=== PATIENT | male | born 1990 | race American Indian/Alaskan Native ===

== ENCOUNTER 2021-09-26 04:25 | Emergency (ER) | payer SELFPAY ==
[2021-09-26 04:32] VITALS: BP 151/125
[2021-09-26] MEDS ORDERED: HYDROcodone/ACETAMINOPHEN 10-325MG TAB PO ONE (04:36)
[2021-09-26] MEDS ORDERED: AMOXICILLIN 500 MG CAP PO ONE (08:25)
[2021-09-26] MEDS ORDERED: IBUPROFEN 800 MG TAB PO ONE (08:25)
--- NOTE | 2021-09-26 08:25 | Emergency Department Report ---
ED ENT HPI - General Chief complaint: Dental/Oral Stated complaint: DENTAL PAIN/ FACIAL PAIN Time Seen by Provider: 09/26/21 08:13 Source: patient Mode of arrival: Ambulatory Limitations: No Limitations - History of Present Illness Initial comments: Patient is a 30-year-old male that comes to the emergency room complaining of upper and lower dental pain. ABCs intact. No trismus. Controlling secretions. No abscess. No lymphadenopathy. Patient denies fever or chills. He has not seen a dentist. He has a history of dental caries MD complaint: tooth pain -: Gradual, days(s) Severity scale (0 -10): 4 Quality: aching Consistency: constant Improves with: none Worsens with: none Context- Dental: history of dental caries Associated Symptoms: toothache. denies: fever, cough, gum swelling, pain with swallowing, sore throat, tinnitus, hearing loss, discharge from ear, rhinorrhea - Related Data Previous Rx's Medication Instructions Recorded Last Taken Type Amoxicillin [Trimox CAP] 500 mg PO BID #20 capsule 09/26/21 Unknown Rx Ibuprofen [Motrin] 800 mg PO Q8HR PRN #30 tablet 09/26/21 Unknown Rx Allergies Allergy/AdvReac Type Severity Reaction Status Date / Time No Known Allergies Allergy Verified 09/26/21 04:30 ED Dental HPI - General Chief complaint: Dental/Oral Stated complaint: DENTAL PAIN/ FACIAL PAIN Time Seen by Provider: 09/26/21 08:13 Source: patient Mode of arrival: Ambulatory Limitations: No Limitations - Related Data Previous Rx's Medication Instructions Recorded Last Taken Type Amoxicillin [Trimox CAP] 500 mg PO BID #20 capsule 09/26/21 Unknown Rx Ibuprofen [Motrin] 800 mg PO Q8HR PRN #30 tablet 09/26/21 Unknown Rx Allergies Allergy/AdvReac Type Severity Reaction Status Date / Time No Known Allergies Allergy Verified 09/26/21 04:30 ED Review of Systems ROS: Stated complaint: DENTAL PAIN/ FACIAL PAIN Other details as noted in HPI Comment: All other systems reviewed and negative ED Past Medical Hx - Past Medical History Previous Medical History?: No - Surgical History Past Surgical History?: No - Family History Family history: no significant - Social History Smoking Status: Current Every Day Smoker Substance Use Type: Alcohol - Medications Home Medications: Home Medications Medication Instructions Recorded Confirmed Last Taken Type Amoxicillin [Trimox CAP] 500 mg PO BID #20 capsule 09/26/21 Unknown Rx Ibuprofen [Motrin] 800 mg PO Q8HR PRN #30 tablet 09/26/21 Unknown Rx ED Physical Exam - General Limitations: No Limitations General appearance: alert, in no apparent distress - Head Head exam: Present: atraumatic, normocephalic - Eye Eye exam: Present: normal appearance - ENT ENT exam: Present: mucous membranes moist - Expanded ENT Exam Expanded Mouth exam: Present: normal external inspection. Absent: drooling, trismus, muffled voice Teeth exam: Present: dental caries 1 - Other (caries) - Neck Neck exam: Present: normal inspection - Respiratory Respiratory exam: Present: normal lung sounds bilaterally. Absent: respiratory distress - Cardiovascular Cardiovascular Exam: Present: regular rate, normal rhythm. Absent: systolic murmur, diastolic murmur, rubs, gallop - GI/Abdominal GI/Abdominal exam: Present: soft, normal bowel sounds - Rectal Rectal exam: Present: deferred - Extremities Exam Extremities exam: Present: normal inspection - Back Exam Back exam: Present: normal inspection - Neurological Exam Neurological exam: Present: alert, oriented X3 - Psychiatric Psychiatric exam: Present: normal affect, normal mood - Skin Skin exam: Present: warm, dry, intact, normal color. Absent: rash ED Course Vital Signs 09/26/21 04:31 Temperature 98.3 F Pulse Rate 97 H Respiratory 18 Rate Blood Pressure 151/125 O2 Sat by Pulse 95 Oximetry ED Medical Decision Making - Medical Decision Making Vital Signs 09/26/21 04:31 Temperature 98.3 F Pulse Rate 97 H Respiratory 18 Rate Blood Pressure 151/125 O2 Sat by Pulse 95 Oximetry ABCs intact. Vital signs are stable. Patient has been educated about the im portance of following up with a dentist. He verbalizes understanding. I also counseled him about his elevated blood pressure. He denies a history of hypertension. He denies any chest pain or shortness of breath on eval in the ER. Patient medicated for pain in the ER. Amoxicillin started. Patient being discharged home with discharge plan of care including diet, activity, medications and follow-up. He verbalizes understanding. - Differential Diagnosis Dental pain Critical care attestation.: If time is entered above; I have spent that time in minutes in the direct care of this critically ill patient, excluding procedure time. ED Disposition Clinical Impression: Pain, dental, Elevated blood pressure reading Disposition: 01 HOME / SELF CARE / HOMELESS Is pt being admited?: No Does the pt Need Aspirin: No Condition: Stable Instructions: Acute Pain, Adult Additional Instructions: meds as ordered today tylenol may also be used- over the counter follow up with dentist darlene referral below Prescriptions: Ibuprofen [Motrin] 800 mg PO Q8HR PRN #30 tablet PRN Reason: Pain, Moderate (4-6) Amoxicillin [Trimox CAP] 500 mg PO BID #20 capsule Referrals: [facility] [Outside] - 3-5 Days [facility] [Outside] - 3-5 Days MAGALY FERNANDEZ MD [Primary Care Provider] - 3-5 Days Forms: Accompanied Note, Work/School Release Form(ED) Time of Disposition: 09:02
== END 2021-09-26 09:27 | disposition home or self-care (01) ==
LOC: ED 04:25
DX: K08.89 Other specified disorders of teeth and supporting structures (principal); R03.0 Elevated blood-pressure reading, without diagnosis of hypertension; F17.200 Nicotine dependence, unspecified, uncomplicated; F10.20 Alcohol dependence, uncomplicated
CPT/HCPCS: 99282